=== PATIENT | male | born 1965 | race Caucasian/White ===

== ENCOUNTER → 2018-11-12 | Outpatient (CLI) | payer OTHER ==
--- NOTE | 2018-11-13 09:15 | CN ---
SERVICE DATE: 11/12/2018 HISTORY OF PRESENT ILLNESS: This 53-year-old male [facility] for evaluation of screening colonoscopy at 53. He has not had a prior colon exam. He, however, has no bowel function change or rectal bleeding noted. His family history is negative for colon cancer. PAST MEDICAL HISTORY: ALLERGIES: The patient has no known allergies. CURRENT MEDICATIONS ARE: Tylenol, Coricidin, Glucotrol, Prilosec, Glucophage, Lipitor, and lisinopril. PAST SURGICAL HISTORY: Include tonsillectomy and ankle surgery. REVIEW OF SYSTEMS: Positive for gastroesophageal reflux. FAMILY HISTORY AND SOCIAL HISTORY: The patient lives here in [place]. He is . He does smoke. 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 REVIEW OF SYSTEMS: Positive for gastroesophageal reflux, diabetes and some occasional asthma and upper respiratory symptoms. PHYSICAL EXAMINATION: HEENT: Clear. Chest: Lungs are clear bilaterally. Heart: Normal sinus rhythm. Abdomen: Mildly obese, nontender. No evidence of hernias. Extremities: Normal. Neurologic: Intact. ASSESSMENT: Candidate for screening colonoscopy. PLAN: I discussed the risks, benefits, and expected outcomes of a colonoscopy and will plan on doing this in the second week in December when I am back up here. His preoperative prep instructions were given and we will proceed the week of December 14. [facility] /[id number]
== END ==
LOC: DL.GSCL 10:52
DX: K21.9 Gastro-esophageal reflux disease without esophagitis (principal)
CPT/HCPCS: 99211

== ENCOUNTER 2018-12-17 07:40 | Day surgery (SDC) | payer OTHER ==
[2018-12-17] MEDS ORDERED: fentaNYL 100 MCG/2 ML SDV IV ONE ×3 (07:41→09:38)
[2018-12-17] MEDS ORDERED: Midazolam 1 MG/ML 2 ML SDV IV ONE ×4 (07:41→09:40)
[2018-12-17] MEDS ORDERED: Lactated Ringers 1,000 ML IV SCH (08:15)
[2018-12-17] MEDS ORDERED: fentaNYL 100 MCG/2 ML SDV ONE (09:15)
[2018-12-17] MEDS ORDERED: Midazolam 1 MG/ML 2 ML SDV ONE (09:15)
--- NOTE | 2018-12-18 09:02 | OR ---
DATE: 12/17/2018 PREOPERATIVE DIAGNOSIS: Screening colonoscopy. POSTOPERATIVE DIAGNOSIS: Screening colonoscopy. PROCEDURE: Total colonoscopy. ANESTHESIA: Conscious sedation with IV Versed and fentanyl. SPECIMEN: None. OPERATIVE FINDINGS: Normal colonoscopy. RECOMMENDATION: Followup screening colonoscopy in 10 years for polyps or sooner for symptoms. INDICATION FOR PROCEDURE: This 53-year-old male presents for screening colonoscopy. PROCEDURE IN DETAIL: After adequate preparation, a colonoscope was inserted into the rectum. This was easily passed all the way to the cecum. Confirmation of the cecum was made by visualization of the ileocecal valve, air coming through the ileocecal valve itself, and palpation in the right lower quadrant. A photograph of the ileocecal valve was taken. The bowel prep was excellent. On withdrawal of the scope, no abnormalities were noted. Air was suctioned from the colon, and the scope removed. [facility] /[id number] cc: Marilu Chiu NP
== END 2018-12-17 10:57 | disposition home or self-care (01) ==
LOC: DL.ENDO 07:40
PROVIDERS: ATTEND Surgery
DX: Z12.11 Encounter for screening for malignant neoplasm of colon (principal); K21.9 Gastro-esophageal reflux disease without esophagitis; J45.909 Unspecified asthma, uncomplicated; I10 Essential (primary) hypertension; F17.210 Nicotine dependence, cigarettes, uncomplicated; Z79.82 Long term (current) use of aspirin; Z79.84 Long term (current) use of oral hypoglycemic drugs; Z79.899 Other long term (current) drug therapy; Z88.6 Allergy status to analgesic agent
CPT/HCPCS: 45378; J2250; J3010; J7120; G0121